=== PATIENT | female | born 1995 | race Caucasian/White ===

== ENCOUNTER 2018-09-15 13:20 | Emergency (ER) | payer OTHER, MEDICAID ==
[~2018-09-15] VITALS: Ht 165.1 cm; Wt 59.0 kg
[~2018-09-15 13:20] MED LIST: CELEXA20 MG PO; ROBAXIN 750 MG750 M1 PO
[2018-09-15] MEDS ORDERED: INVEGA SUS156 MG/1 M IM (13:37)
[2018-09-15] MEDS ORDERED: PRAZOSIN 1 MG CA1 MG PO (13:38)
[2018-09-15] MEDS ORDERED: PROZAC40 MG PO (13:38)
[2018-09-15] MEDS ORDERED: WELLBUTRIN SR100 MG PO (13:39)
[2018-09-15] MEDS ORDERED: HYDROXYZINE HCL25 M1 PO (13:39)
[2018-09-15] MEDS ORDERED: SUBOXONE 12 MG1 EACH SUBLING (13:40)
[2018-09-15 13:48] LABS: URINE BILIRUBIN NEGATIVE (Negative); URINE BLOOD NEGATIVE (Negative); URINE CLARITY CLEAR; URINE COLOR YELLOW; URINE GLUCOSE-RANDOM NEGATIVE (Negative); URINE KETONES NEGATIVE (Negative); URINE LEUKOCYTES-REFLEX NEGATIVE (Negative); URINE NITRITE-REFLEX NEGATIVE (Negative); URINE PROTEIN NEGATIVE (Negative); URINE UROBILINOGEN 0.2 E.U./dl (0.2-1.0)
[2018-09-15 13:57] LABS: ABSOLUTE BASOPHILS 0.1 thou/uL (0.0-0.2); ABSOLUTE EOSINOPHILS 0.2 thou/uL (0.0-0.7); ABSOLUTE LYMPHOCYTES 1.8 thou/uL (0.8-5.3); ABSOLUTE MONOCYTES 0.3 thou/uL (0.0-1.2); ABSOLUTE NEUTROPHILS 2.7 thou/uL (1.6-8.1); BASOPHILS 1.1 %; EOSINOPHILS 3.9 %; HEMATOCRIT 41.5 % (37.0-47.0); LYMPHOCYTES 35.3 %; MCH 31.8 pg (26.0-34.0); MCHC 33.7 g/dL (28.0-37.0); MCV 94.4 fL (80.0-100.0); MONOCYTES 6.6 %; NUCLEATED RBCS 0 /100WBC; PLATELET COUNT* 191 thou/uL (150-400); POLYS 53.1 %; RBC 4.39 mil/uL (4.20-5.00); RDW-CV 12.6 % (10.5-14.5); WBC 5.1 thou/uL (4.0-11.0)
[2018-09-15 14:22] LABS: AMP/METHAMP Negative (Negative); BARBITURATES Negative (Negative); BENZODIAZEPINES Negative (Negative); COCAINE Negative (Negative); METHADONE Negative (Negative); OPIATES Negative (Negative); PCP Negative (Negative); THC Negative (Negative)
[2018-09-15 14:25] LABS: ALBUMIN 4.1 g/dL (3.4-5.0); CREATININE 0.9 mg/dL (0.6-1.3); POTASSIUM 3.9 mmol/L (3.5-5.1); TOTAL BILIRUBIN 0.6 mg/dL (<0.1-1.0); TOTAL PROTEIN 7.5 g/dL (6.4-8.2)
[2018-09-15 14:39] LABS: ALCOHOL < 10 mg/dL (<10); SALICYLATE < 2.8 mg/dL (2.8-20.0)
[2018-09-15 14:41] LABS: ACETAMINOPHEN < 2 ug/mL (10-30)
[2018-09-15 19:15] VITALS: BP 131/79
== END 2018-09-15 19:20 ==
LOC: M.ERS 13:20
PROVIDERS: Emergency Medicine Emergency Medical Services
DX: F20.9 Schizophrenia, unspecified (principal); R45.851 Suicidal ideations; F32.9 Major depressive disorder, single episode, unspecified; Z98.890 Other specified postprocedural states; Z86.19 Personal history of other infectious and parasitic diseases; Z79.899 Other long term (current) drug therapy

== ENCOUNTER 2019-07-01 16:35 | Emergency (ER) | payer OTHER, MEDICAID ==
[~2019-07-01] VITALS: Ht 165.1 cm; Wt 61.2 kg
[~2019-07-01 16:35] MED LIST changes: +HYDROXYZINE HCL25 M1 PO; +INVEGA SUS156 MG/1 M IM; +PRAZOSIN 1 MG CA1 MG PO; +PROZAC40 MG PO; +SUBOXONE 12 MG1 EACH SUBLING; +WELLBUTRIN SR100 MG PO
[2019-07-01] MEDS ORDERED: REMERON15 M2 PO (16:58)
[2019-07-01] MEDS ORDERED: HALDOL 0.5 MG0.5 MG PO (16:59)
[2019-07-01] MEDS ORDERED: VISTARIL50 MG PO (16:59)
[2019-07-01] MEDS ORDERED: ATIVAN0.5 M1 PO (17:32)
[2019-07-01] MEDS ORDERED: TRIAMCINOLONE A80 G2 TOP (17:40)
[2019-07-01 18:01] VITALS: BP 134/79
== END 2019-07-01 18:02 | disposition home or self-care (01) ==
LOC: M.ERS 16:35
DX: L25.9 Unspecified contact dermatitis, unspecified cause (principal); F31.9 Bipolar disorder, unspecified; F41.9 Anxiety disorder, unspecified; Z90.89 Acquired absence of other organs

== ENCOUNTER 2019-11-08 21:22 | Emergency (ER) | payer OTHER, MEDICAID ==
[~2019-11-08] VITALS: Ht 188 cm; Wt 57.1 kg
[~2019-11-08 21:22] MED LIST changes: +ATIVAN0.5 M1 PO; +HALDOL 0.5 MG0.5 MG PO; +REMERON15 M2 PO; +TRIAMCINOLONE A80 G2 TOP; +VISTARIL50 MG PO
[2019-11-08] MEDS ORDERED: ADDERALL 10 MG10 MG PO (22:31)
[2019-11-08] MEDS ORDERED: NEURONTIN300 MG PO (22:31)
[2019-11-08 23:38] LABS: ABSOLUTE BASOPHILS 0.1 thou/uL (0.0-0.2); ABSOLUTE LYMPHOCYTES 3.3 thou/uL (0.8-5.3); BASOPHILS 0.4 %; EOSINOPHILS 0.1 %; HEMATOCRIT 42.4 % (37.0-47.0); HEMOGLOBIN 14.5 gm/dL (12.0-15.0); MCH 32.7 pg (26.0-34.0); MCHC 34.2 g/dL (28.0-37.0); MCV 95.4 fL (80.0-100.0); MONOCYTES 7.3 %; MPV 9.2 fl. (7.2-11.1); NUCLEATED RBCS 0 /100WBC; PLATELET COUNT* 227 thou/uL (150-400); POLYS 67.2 %; RBC 4.44 mil/uL (4.20-5.00); RDW-CV 12.5 % (10.5-14.5); WBC 13.4 thou/uL (4.0-11.0)
[2019-11-08 23:47] LABS: CALCIUM 9.2 mg/dL (8.5-10.1); CREATININE 1.1 mg/dL (0.6-1.3); POTASSIUM 3.6 mmol/L (3.5-5.1)
[2019-11-08 23:52] LABS: ALBUMIN 4.9 g/dL (3.4-5.0); TOTAL BILIRUBIN 0.6 mg/dL (<0.1-1.0); TOTAL PROTEIN 7.5 g/dL (6.4-8.2)
[2019-11-09 02:01] LABS: URINE BILIRUBIN NEGATIVE (Negative); URINE BLOOD NEGATIVE (Negative); URINE CLARITY CLEAR; URINE COLOR STRAW; URINE GLUCOSE-RANDOM NEGATIVE (Negative); URINE KETONES NEGATIVE (Negative); URINE LEUKOCYTES-REFLEX NEGATIVE (Negative); URINE NITRITE-REFLEX NEGATIVE (Negative); URINE PROTEIN NEGATIVE (Negative); URINE SPECIFIC GRAVITY <= 1.005 (1.005-1.030); URINE UROBILINOGEN 0.2 E.U./dl (0.2-1.0)
[2019-11-09] MEDS ORDERED: ZOFRAN ODT4 MG PO (02:17)
[2019-11-09 02:29] VITALS: BP 123/81
== END 2019-11-09 02:29 | disposition home or self-care (01) ==
LOC: M.ERS 21:22
PROVIDERS: Emergency Medicine
DX: R11.2 Nausea with vomiting, unspecified (principal); R10.31 Right lower quadrant pain; F31.9 Bipolar disorder, unspecified; Z90.49 Acquired absence of other specified parts of digestive tract

== ENCOUNTER 2020-01-03 13:02 | Emergency (ER) | payer OTHER, MEDICAID ==
[~2020-01-03] VITALS: Ht 165.1 cm; Wt 59.0 kg
[~2020-01-03 13:02] MED LIST changes: +ADDERALL 10 MG10 MG PO; +NEURONTIN300 MG PO; +ZOFRAN ODT4 MG PO
[2020-01-03] MEDS ORDERED: INVEGA TRI273 MG/0.8 IM (13:20)
[2020-01-03] MEDS ORDERED: MINIPRESS2 MG PO (13:20)
[2020-01-03] MEDS ORDERED: RISPERDAL0.5 MG PO (13:21)
[2020-01-03] MEDS ORDERED: MIRENA1 EACH INTRAUTERI (13:21)
[2020-01-03] MEDS ORDERED: WELLBUTRIN 100100 MG PO (13:21)
[2020-01-03] MEDS ORDERED: [UNRECOGNIZED DRUG - OTHER] (13:22)
[2020-01-03 14:02] LABS: URINE BILIRUBIN NEGATIVE (Negative); URINE BLOOD NEGATIVE (Negative); URINE CLARITY CLEAR; URINE COLOR YELLOW; URINE GLUCOSE-RANDOM NEGATIVE (Negative); URINE KETONES NEGATIVE (Negative); URINE LEUKOCYTES-REFLEX NEGATIVE (Negative); URINE NITRITE-REFLEX NEGATIVE (Negative); URINE PROTEIN NEGATIVE (Negative); URINE SPECIFIC GRAVITY <= 1.005 (1.005-1.030); URINE UROBILINOGEN 0.2 E.U./dl (0.2-1.0)
[2020-01-03 14:16] LABS: ABSOLUTE BASOPHILS 0.1 thou/uL (0.0-0.2); ABSOLUTE EOSINOPHILS 0.1 thou/uL (0.0-0.7); ABSOLUTE LYMPHOCYTES 1.9 thou/uL (0.8-5.3); ABSOLUTE MONOCYTES 0.5 thou/uL (0.0-1.2); ABSOLUTE NEUTROPHILS 3.1 thou/uL (1.6-8.1); BASOPHILS 0.9 %; HEMATOCRIT 42.3 % (37.0-47.0); HEMOGLOBIN 14.7 gm/dL (12.0-15.0); LYMPHOCYTES 33.1 %; MCH 33.8 pg (26.0-34.0); MCHC 34.7 g/dL (28.0-37.0); MCV 97.3 fL (80.0-100.0); MONOCYTES 9.2 %; MPV 8.4 fl. (7.2-11.1); NUCLEATED RBCS 0 /100WBC; PLATELET COUNT* 238 thou/uL (150-400); POLYS 54.8 %; RBC 4.34 mil/uL (4.20-5.00); WBC 5.7 thou/uL (4.0-11.0)
[2020-01-03 14:22] LABS: APTT 22.4 Seconds (25.0-31.3); CALCIUM 8.9 mg/dL (8.5-10.1); CREATININE 0.9 mg/dL (0.6-1.3); POTASSIUM 4.2 mmol/L (3.5-5.1)
[2020-01-03 14:26] LABS: TOTAL BILIRUBIN 0.3 mg/dL (<0.1-1.0); TOTAL PROTEIN 7.1 g/dL (6.4-8.2)
[2020-01-03 14:48] LABS: AMP/METHAMP POSITIVE (Negative); BARBITURATES Negative (Negative); BENZODIAZEPINES Negative (Negative); COCAINE Negative (Negative); METHADONE Negative (Negative); OPIATES Negative (Negative); PCP Negative (Negative); THC Negative (Negative)
[2020-01-03] MEDS ORDERED: PHENERGAN 25 MG25 M1 PO (18:12)
[2020-01-03] MEDS ORDERED: NORCO 5-325 TA1 EAC2 PO (18:12)
[2020-01-03 18:20] VITALS: BP 125/70
--- NOTE | 2020-01-04 10:23 | EKG ---
[place] [address] ELECTROCARDIOGRAM REPORT Name: LUCERO UMANA Room: [facility]#: [id number] Admission: 01/03/20 Attend Phys: Discharge: 01/03/20 Date of : [birth year] Date of Service: 01/03/20 1403 Report #: [id number] THIS REPORT FOR: //name// [facility] ED Test Date: 2020-01-03 Test Time: 14:03:15 Pat Name: LUCERO UMANA Department: Room: Gender: F [employer] Induction: CCD : 1995 Requested By: Lilia Elena Order Number: [id number] MD: Garth Rowan Measurements Intervals [place] Rate: 126 P: 47 SC: 124 QRS: 53 QRSD: 76 T: 42 QT: 308 QTc: 446 Interpretive Statements Sinus tachycardia No previous ECG available for comparison Electronically Signed On 01-04-2020 10:23:26 CDT by Garth Rowan [email or web address] <ELECTRONICALLY SIGNED> By: Garth Rowan MD, [facility] 01/04/20 1023 1403 02 Garth Rowan MD, FACC /EPI
== END 2020-01-03 18:21 | disposition home or self-care (01) ==
LOC: M.ERS 13:02
PROVIDERS: Nurse Practitioner Family
DX: S39.012A Strain of muscle, fascia and tendon of lower back, initial encounter (principal); S29.012A Strain of muscle and tendon of back wall of thorax, initial encounter; R10.11 Right upper quadrant pain; K76.0 Fatty (change of) liver, not elsewhere classified; R19.7 Diarrhea, unspecified; F17.210 Nicotine dependence, cigarettes, uncomplicated; Z90.89 Acquired absence of other organs; Z86.19 Personal history of other infectious and parasitic diseases; Z87.19 Personal history of other diseases of the digestive system; Z79.899 Other long term (current) drug therapy; V89.2XXA Person injured in unspecified motor-vehicle accident, traffic, initial encounter; Y93.89 Activity, other specified; Y92.89 Other specified places as the place of occurrence of the external cause; Y99.8 Other external cause status

== ENCOUNTER 2020-01-09 13:19 | Inpatient (IN) | payer OTHER, MEDICAID ==
[~2020-01-09] VITALS: Ht 152.4 cm; Wt 61.2 kg
--- NOTE | ~2020-01-09 | OP ---
[facility] [address] [place] [address] OPERATIVE REPORT Name: LUCERO UMANA Room: [address] IN M.R.#: [id number] Admission: 01/09/20 Attend Phys: Alton Guerrero Discharge: Date of : [birth year] Report #: [id number] THIS REPORT FOR: //name// cc: REID Guzman family physician/PCP REID Guzman family physician/PCP ~ THIS REPORT FOR: //name// CC: REID physician/PCP Alton Guerrero DATE OF SERVICE: 01/09/2020 PREOPERATIVE DIAGNOSIS: Acute appendicitis. POSTOPERATIVE DIAGNOSIS: Acute appendicitis. OPERATION: Laparoscopic appendectomy. SURGEON: Alton Guerrero MD ANESTHESIA: General. ESTIMATED BLOOD LOSS: Minimal. SPECIMEN: Appendix. DESCRIPTION OF PROCEDURE: After informed consent was obtained, the patient was brought to the operating room and placed supine. SCDs were placed and working, preoperative antibiotics were administered, general anesthesia was induced. The abdomen was prepped and draped in the usual sterile fashion. A 10-mm incision was made below the umbilicus. Fascia was incised and a trocar was placed. Pneumoperitoneum was established. Right upper quadrant and left lower quadrant 5-mm trocar was placed. The appendix was visualized in the right lower quadrant. It was grasped and retracted anteriorly. A window was made in the mesoappendix. The mesoappendix was ligated with a KURT liao load stapler. The base of the appendix was stapled off with a KURT blue load stapler. Appendix was placed into an Endopouch and removed. The fascia was then closed with a iuydjn-ud-uzlax 0 Vicryl. Skin was closed with 4-0 Monocryl. Incisions were sealed with Dermabond. COMPLICATIONS: [place] [address] OPERATIVE REPORT Name: LUCERO UMANA Room: [address]#: [id number] Admission: 01/09/20 Attend Phys: Alton Guerrero Discharge: Date of : [birth year] Report #: [id number] DISPOSITION: The patient was taken to recovery in satisfactory condition. By: [id number] Guerrero MD /sukhdev
[~2020-01-09 13:19] MED LIST changes: +INVEGA TRI273 MG/0.8 IM; +MINIPRESS2 MG PO; +MIRENA1 EACH INTRAUTERI; +NORCO 5-325 TA1 EAC2 PO; +PHENERGAN 25 MG25 M1 PO; +RISPERDAL0.5 MG PO; +WELLBUTRIN 100100 MG PO; +[UNRECOGNIZED DRUG - OTHER] PO
[2020-01-09 13:28] VITALS: BP 112/80
--- NOTE | 2020-01-09 14:00 | NUR ---
PT BROUGHT BACK TO A ROOM. SHE STATED SHE IS HERE FOR PAIN CONTROL, THE HYDROCODONE SHE HAS IS NOT WORKING. ADDITIONALLY, SHE WOULD LIKE A TEST, SHE HAS HAD CONFLICTING TESTS AT HOME.
[2020-01-09 14:01] LABS: URINE BILIRUBIN NEGATIVE (Negative); URINE BLOOD NEGATIVE (Negative); URINE CLARITY CLEAR; URINE COLOR YELLOW; URINE GLUCOSE-RANDOM NEGATIVE (Negative); URINE KETONES NEGATIVE (Negative); URINE LEUKOCYTES-REFLEX NEGATIVE (Negative); URINE NITRITE-REFLEX NEGATIVE (Negative); URINE PROTEIN NEGATIVE (Negative); URINE UROBILINOGEN 0.2 E.U./dl (0.2-1.0)
[2020-01-09 15:03] LABS: CALCIUM 8.8 mg/dL (8.5-10.1); POTASSIUM 4.1 mmol/L (3.5-5.1)
[2020-01-09 15:05] LABS: APTT 23.5 Seconds (25.0-31.3); PROTIME 9.9 Seconds (9.20-11.50)
[2020-01-09 15:07] LABS: ABSOLUTE EOSINOPHILS 0.2 thou/uL (0.0-0.7); ABSOLUTE LYMPHOCYTES 1.9 thou/uL (0.8-5.3); ABSOLUTE MONOCYTES 0.5 thou/uL (0.0-1.2); BASOPHILS 0.5 %; EOSINOPHILS 2.6 %; LYMPHOCYTES 28.9 %; MCH 34.1 pg (26.0-34.0); MCV 97.4 fL (80.0-100.0); MPV 8.2 fl. (7.2-11.1); NUCLEATED RBCS 0 /100WBC; PLATELET COUNT* 267 thou/uL (150-400); RDW-CV 12.9 % (10.5-14.5); WBC 6.6 thou/uL (4.0-11.0)
[2020-01-09 15:08] LABS: ALBUMIN 3.9 g/dL (3.4-5.0); TOTAL BILIRUBIN 0.3 mg/dL (<0.1-1.0); TOTAL PROTEIN 6.9 g/dL (6.4-8.2)
[2020-01-09 18:50] VITALS: BP 112/67
[2020-01-09 20:00] VITALS: BP 126/80
--- NOTE | 2020-01-10 04:38 | NUR ---
PT ARRIVED TO THE UNIT AT SHIFT CHANGE. A&O X 4. VSS ON RA. PAIN MANAGED WITH FENTANYL. ATIVAN GIVEN PER PT REQUEST FOR ANXIETY. NO C/O NAUSEA OR VOMITING. NPO SINCE MIDNIGHT. WILL CONTINUE TO MONITOR.
[2020-01-10 08:30] VITALS: BP 112/63
--- NOTE | 2020-01-10 18:01 | NUR ---
PT AOx4. pt had lap appe done today and returned to floor at 1700. Dermabond to lap sites x3. Pt c/o 9/10 pain while resting comfortably in bed. Pt given norco PO for pain management. IV saline locked, up ad fabio in room. Voiced no concerns. Will continue to monitor
[2020-01-10 19:57] VITALS: BP 102/61
--- NOTE | 2020-01-11 06:00 | NUR ---
PT ALERT AND ORIENTED WITH FLAT AFFECT. PAIN STILL AN ISSUE WAS RATED 9/10 ON ASSESSMENTS. RECEIVED HYDROCODONE AND FENTANYL BOTH 2X DURING SHIFT FOR PAIN. SHE WAS ABLE TO SLEEP MOST OF THE NIGHT. SHE IS STANDBY ASSIST TO RESTROOM AND ON ROOM AIR. SHE DID REQUEST SOMETHING FOR ANXIETY (ATIVAN) WHICH HELPED HER SLEEP. SHE IS AMBULATING WELL BUT REPORTS SEVERE ABDOMINAL PAIN. 3 ABD LAPSITES WITH DERMABOND CLEAR OF ANY S/S OF INFECTION. NO REPORTS OF NAUSEA OR VOMITING. WILL CONTINUE TO FOLLOW PLAN OF CARE.
[2020-01-11 08:30] VITALS: BP 122/77
[2020-01-11 12:02] VITALS: BP 116/62
[2020-01-11 12:57] VITALS: BP 116/62
--- NOTE | 2020-01-11 13:35 | NUR ---
PATIENT DISCHARGED TO HOME. DISCHARGE PAPERS REVIEWED AND SIGNED. PRESCRIPTION AND INFORMATION SHEETS GIVEN. IV REMOVED. PATIENT DENIES ANY FURTHER NEEDS. PATIENT TAKEN BY WHEELCHAIR TO EXIT. LEFT WITH GRANDMOTHER.
--- NOTE | 2020-01-13 17:06 | PATH ---
[address] [address] PATHOLOGY RPT PROCEDURE Name: LUCERO UMANA Room: [address] IN M.R.#: [id number] Admission: 01/09/20 Date of : [birth year] Discharge: 01/11/20 Report #: [id number] Path Case #: [id number] [facility] Accession Number: [id number] . 01 Material submitted: . appendix - APPENDIX . 01 Clinical history: . ACUTE APPENDICITIS . 02 Diagnosis: Appendix: - Benign and non-inflamed appendix. . (GREG:mml; 01/12/2020) [facility] 01/12/2020 1628 Local . 02 Electronically signed: . Zach Jay MD, Pathologist NPI- [id number] . 01 Gross description: . The specimen is received in formalin, labeled "baljit Yoon". Received is a vermiform appendix measuring 8.7 cm in length by up to 0.8 cm in diameter with a moderate amount of attached mesoappendix. The serosal surface is pink-liao in appearance with moderate vasculature over the distal half of the specimen. The surgical margin is closed with a line of oliva. The oliva are removed and the new margin is inked black. Sectioning reveals a patent to dilated lumen filled with fecal material. The specimen is submitted representatively in cassettes A1 and A2, with the proximal margin and bisected tip submitted in cassette A1. ([facility]; 01/11/2020) . After initial microscopic examination, the remainder of the appendix is submitted from proximal to distal aspects in cassettes A3 through A7. ([facility]; 01/12/2020) QAC/QAC 01/12/2020 1755 Local . 02 Pathologist provided ICD-10: K35.80 . 02 CPT . 200107 Specimen Comment: A courtesy copy of this report has been sent to [phone] Specimen Comment: Report sent to Performed at: [address] [facility], [place] [id number] [place] [address] PATHOLOGY RPT PROCEDURE Name: LUCERO UMANA Room: [address] IN M.R.#: [id number] Admission: 01/09/20 Date of : [birth year] Discharge: 01/11/20 Report #: [id number] Path Case #: [id number] MD Brenden Lynch MD Phone: [phone] Performed at: [address] [facility] [address], [place], [place] [id number] MD Zach Jay MD Phone: [phone]
== END 2020-01-11 13:20 | disposition home or self-care (01) | DRG 343 ==
LOC: M.ERS 13:19 → M.TBA-ER 16:14 → M.ORTHSURG 16:14
PROVIDERS: Physician Assistant; ADMIT Surgery; ATTEND Surgery
PROC: 0DTJ4ZZ Resection of Appendix, Percutaneous Endoscopic Approach (ICD-10-PCS; principal; 2020-01-09)
DX: K35.80 Unspecified acute appendicitis (principal); F31.9 Bipolar disorder, unspecified; F25.9 Schizoaffective disorder, unspecified; K75.9 Inflammatory liver disease, unspecified; F41.9 Anxiety disorder, unspecified; F17.210 Nicotine dependence, cigarettes, uncomplicated; Z79.899 Other long term (current) drug therapy

== ENCOUNTER 2020-03-10 11:00 | Emergency (ER) | payer OTHER, MEDICAID ==
[~2020-03-10] VITALS: Ht 170.2 cm; Wt 70.3 kg
[2020-03-10 11:10] VITALS: BP 144/84
[2020-03-10] MEDS ORDERED: ATIVAN0.5 M1 PO (11:14)
[2020-03-10 12:08] LABS: ABSOLUTE BASOPHILS 0.1 thou/uL (0.0-0.2); ABSOLUTE EOSINOPHILS 0.2 thou/uL (0.0-0.7); ABSOLUTE LYMPHOCYTES 2.2 thou/uL (0.8-5.3); ABSOLUTE MONOCYTES 0.4 thou/uL (0.0-1.2); ABSOLUTE NEUTROPHILS 3.1 thou/uL (1.6-8.1); BASOPHILS 1.1 %; EOSINOPHILS 3.7 %; HEMATOCRIT 44.2 % (37.0-47.0); HEMOGLOBIN 15.1 gm/dL (12.0-15.0); LYMPHOCYTES 36.9 %; MCH 33.4 pg (26.0-34.0); MCHC 34.3 g/dL (28.0-37.0); MCV 97.6 fL (80.0-100.0); MONOCYTES 7.3 %; MPV 7.9 fl. (7.2-11.1); NUCLEATED RBCS 0 /100WBC; PLATELET COUNT* 214 thou/uL (150-400); RBC 4.53 mil/uL (4.20-5.00); RDW-CV 12.1 % (10.5-14.5); WBC 6.1 thou/uL (4.0-11.0)
[2020-03-10 12:19] LABS: CALCIUM 9.3 mg/dL (8.5-10.1); POTASSIUM 4.1 mmol/L (3.5-5.1)
[2020-03-10 12:23] LABS: ALBUMIN 4.4 g/dL (3.4-5.0); TOTAL BILIRUBIN 0.4 mg/dL (<0.1-1.0); TOTAL PROTEIN 7.7 g/dL (6.4-8.2)
== END 2020-03-10 12:37 | disposition home or self-care (01) ==
LOC: M.ERS 11:00
PROVIDERS: Emergency Medicine Emergency Medical Services
DX: R10.11 Right upper quadrant pain (principal); Z90.89 Acquired absence of other organs; Z86.19 Personal history of other infectious and parasitic diseases

== ENCOUNTER 2020-05-01 05:16 | Emergency (ER) | payer OTHER, MEDICAID ==
[~2020-05-01] VITALS: Ht 165.1 cm; Wt 61.2 kg
[2020-05-01] MEDS ORDERED: ROXICODONE5 M2 PO (05:35)
[2020-05-01 05:51] VITALS: BP 124/72
[2020-05-01 05:57] LABS: URINE BILIRUBIN NEGATIVE (Negative); URINE BLOOD NEGATIVE (Negative); URINE CLARITY CLEAR; URINE COLOR YELLOW; URINE GLUCOSE-RANDOM NEGATIVE (Negative); URINE KETONES NEGATIVE (Negative); URINE LEUKOCYTES-REFLEX NEGATIVE (Negative); URINE NITRITE-REFLEX NEGATIVE (Negative); URINE PROTEIN NEGATIVE (Negative); URINE SPECIFIC GRAVITY >= 1.030 (1.005-1.030)
[2020-05-01 06:15] LABS: AMP/METHAMP Negative (Negative); BARBITURATES Negative (Negative); BENZODIAZEPINES Negative (Negative); COCAINE Negative (Negative); METHADONE Negative (Negative); OPIATES Negative (Negative); PCP Negative (Negative); THC Negative (Negative)
== END 2020-05-01 05:51 | disposition left against medical advice (07) ==
LOC: M.ERS 05:16
PROVIDERS: Personal Emergency Response Attendant
DX: R10.13 Epigastric pain (principal); R51.9 Headache, unspecified; Z90.89 Acquired absence of other organs

== ENCOUNTER 2020-05-13 18:22 | Emergency (ER) | payer OTHER, MEDICAID ==
[~2020-05-13] VITALS: Ht 165.1 cm; Wt 61.2 kg
[~2020-05-13 18:22] MED LIST changes: +ROXICODONE5 M2 PO
[2020-05-13 19:29] LABS: ABSOLUTE EOSINOPHILS 0.2 thou/uL (0.0-0.7); ABSOLUTE LYMPHOCYTES 2.2 thou/uL (0.8-5.3); ABSOLUTE MONOCYTES 0.5 thou/uL (0.0-1.2); ABSOLUTE NEUTROPHILS 3.6 thou/uL (1.6-8.1); BASOPHILS 0.7 %; EOSINOPHILS 3.2 %; HEMATOCRIT 41.7 % (37.0-47.0); HEMOGLOBIN 14.1 gm/dL (12.0-15.0); LYMPHOCYTES 33.7 %; MCH 32.8 pg (26.0-34.0); MCHC 33.9 g/dL (28.0-37.0); MCV 96.8 fL (80.0-100.0); MONOCYTES 7.3 %; MPV 7.7 fl. (7.2-11.1); NUCLEATED RBCS 0 /100WBC; PLATELET COUNT* 230 thou/uL (150-400); POLYS 55.1 %; RBC 4.31 mil/uL (4.20-5.00); RDW-CV 12.1 % (10.5-14.5); WBC 6.6 thou/uL (4.0-11.0)
[2020-05-13 19:37] LABS: CALCIUM 8.9 mg/dL (8.5-10.1); CREATININE 0.8 mg/dL (0.6-1.3); POTASSIUM 3.7 mmol/L (3.5-5.1)
[2020-05-13 19:41] LABS: ALBUMIN 4.1 g/dL (3.4-5.0); TOTAL BILIRUBIN 0.3 mg/dL (<0.1-1.0); TOTAL PROTEIN 7.3 g/dL (6.4-8.2)
[2020-05-13] MEDS ORDERED: ZOFRAN4 MG PO (20:05)
[2020-05-13 20:47] VITALS: BP 126/76
== END 2020-05-13 20:49 | disposition home or self-care (01) ==
LOC: M.ERS 18:22
PROVIDERS: Physician Assistant
DX: B34.9 Viral infection, unspecified (principal); R11.2 Nausea with vomiting, unspecified; Z20.828 Contact with and (suspected) exposure to other viral communicable diseases; Z90.89 Acquired absence of other organs; Z86.19 Personal history of other infectious and parasitic diseases

== ENCOUNTER 2020-07-10 16:04 | Emergency (ER) | payer OTHER, MEDICAID ==
[~2020-07-10] VITALS: Ht 165.1 cm; Wt 59.0 kg
[~2020-07-10 16:04] MED LIST changes: +ZOFRAN4 MG PO
[2020-07-10] MEDS ORDERED: WELLBUTRIN 75 M75 M1 PO (16:12)
[2020-07-10] MEDS ORDERED: INVEGA 3 MG3 MG PO (16:12)
[2020-07-10 16:33] VITALS: BP 118/75
== END 2020-07-10 16:33 | disposition home or self-care (01) ==
LOC: M.ERS 16:04
DX: F19.10 Other psychoactive substance abuse, uncomplicated (principal); K74.60 Unspecified cirrhosis of liver; F17.210 Nicotine dependence, cigarettes, uncomplicated; Z90.89 Acquired absence of other organs; Z86.19 Personal history of other infectious and parasitic diseases

== ENCOUNTER 2020-08-03 13:22 | Emergency (ER) | payer OTHER, MEDICAID ==
[~2020-08-03] VITALS: Ht 165.1 cm; Wt 61.2 kg
[~2020-08-03 13:22] MED LIST changes: +INVEGA 3 MG3 MG PO; +WELLBUTRIN 75 M75 M1 PO
[2020-08-03] MEDS ORDERED: ALPRAZOLAM 0.50.5 M1 PO ×2 (13:45→13:55)
[2020-08-03 13:58] VITALS: BP 140/82
== END 2020-08-03 13:58 | disposition home or self-care (01) ==
LOC: M.ERS 13:22
DX: F41.9 Anxiety disorder, unspecified (principal); F32.9 Major depressive disorder, single episode, unspecified; F25.9 Schizoaffective disorder, unspecified; F17.210 Nicotine dependence, cigarettes, uncomplicated; Z90.89 Acquired absence of other organs; Z86.19 Personal history of other infectious and parasitic diseases

== ENCOUNTER 2020-11-07 21:31 | Emergency (ER) | payer OTHER, MEDICAID ==
[~2020-11-07] VITALS: Ht 165.1 cm; Wt 59.0 kg
[~2020-11-07 21:31] MED LIST changes: +ALPRAZOLAM 0.50.5 M1 PO
[2020-11-07] MEDS ORDERED: REMERON45 M1 PO (21:59)
[2020-11-07 22:28] LABS: URINE BILIRUBIN NEGATIVE (Negative); URINE BLOOD NEGATIVE (Negative); URINE CLARITY CLEAR; URINE COLOR YELLOW; URINE GLUCOSE-RANDOM NEGATIVE (Negative); URINE KETONES NEGATIVE (Negative); URINE LEUKOCYTES-REFLEX NEGATIVE (Negative); URINE NITRITE-REFLEX NEGATIVE (Negative); URINE PROTEIN NEGATIVE (Negative); URINE UROBILINOGEN 0.2 E.U./dl (0.2-1.0)
[2020-11-07 22:37] LABS: AMP/METHAMP POSITIVE (Negative); BARBITURATES Negative (Negative); BENZODIAZEPINES Negative (Negative); COCAINE Negative (Negative); METHADONE Negative (Negative); OPIATES Negative (Negative); PCP Negative (Negative); THC Negative (Negative)
[2020-11-07 22:51] LABS: ABSOLUTE BASOPHILS 0.1 thou/uL (0.0-0.2); ABSOLUTE EOSINOPHILS 0.4 thou/uL (0.0-0.7); ABSOLUTE LYMPHOCYTES 2.8 thou/uL (0.8-5.3); ABSOLUTE MONOCYTES 0.5 thou/uL (0.0-1.2); ABSOLUTE NEUTROPHILS 3.8 thou/uL (1.6-8.1); BASOPHILS 1.1 %; EOSINOPHILS 4.9 %; HEMATOCRIT 39.5 % (37.0-47.0); HEMOGLOBIN 13.6 gm/dL (12.0-15.0); LYMPHOCYTES 36.8 %; MCH 33.9 pg (26.0-34.0); MCHC 34.4 g/dL (28.0-37.0); MCV 98.5 fL (80.0-100.0); MONOCYTES 6.7 %; MPV 8.1 fl. (7.2-11.1); NUCLEATED RBCS 0 /100WBC; PLATELET COUNT* 241 thou/uL (150-400); POLYS 50.5 %; RBC 4.01 mil/uL (4.20-5.00); RDW-CV 12.5 % (10.5-14.5); WBC 7.6 thou/uL (4.0-11.0)
[2020-11-07 22:59] LABS: CREATININE 1.1 mg/dL (0.6-1.3); POTASSIUM 3.8 mmol/L (3.5-5.1)
[2020-11-07 23:04] LABS: ALBUMIN 3.8 g/dL (3.4-5.0); TOTAL PROTEIN 6.9 g/dL (6.4-8.2)
[2020-11-07 23:14] LABS: SALICYLATE 3.8 mg/dL (2.8-20.0)
[2020-11-07 23:17] LABS: ACETAMINOPHEN < 2 ug/mL (10-30); TOTAL BILIRUBIN 0.2 mg/dL (<0.1-1.0)
[2020-11-08 10:32] VITALS: BP 130/68
== END 2020-11-08 10:32 ==
LOC: M.ERS 21:31
PROVIDERS: Emergency Medicine
DX: F29 Unspecified psychosis not due to a substance or known physiological condition (principal); Z20.822 Contact with and (suspected) exposure to COVID-19; F15.10 Other stimulant abuse, uncomplicated; F20.9 Schizophrenia, unspecified; F32.9 Major depressive disorder, single episode, unspecified; F17.210 Nicotine dependence, cigarettes, uncomplicated; Z90.89 Acquired absence of other organs; Z86.19 Personal history of other infectious and parasitic diseases; Z79.899 Other long term (current) drug therapy

== ENCOUNTER 2021-02-03 16:55 | Emergency (ER) | payer OTHER, MEDICAID ==
[~2021-02-03] VITALS: Ht 165.1 cm; Wt 65.8 kg
[~2021-02-03 16:55] MED LIST changes: +REMERON45 M1 PO
[2021-02-03] MEDS ORDERED: ADDERALL XR 3030 MG PO (17:11)
[2021-02-03 18:30] LABS: URINE BILIRUBIN NEGATIVE (Negative); URINE BLOOD NEGATIVE (Negative); URINE CLARITY CLEAR; URINE COLOR YELLOW; URINE GLUCOSE-RANDOM NEGATIVE (Negative); URINE KETONES NEGATIVE (Negative); URINE LEUKOCYTES-REFLEX NEGATIVE (Negative); URINE NITRITE-REFLEX NEGATIVE (Negative); URINE PROTEIN NEGATIVE (Negative); URINE UROBILINOGEN 0.2 E.U./dl (0.2-1.0)
[2021-02-03 18:32] LABS: ABSOLUTE BASOPHILS 0.1 thou/uL (0.0-0.2); ABSOLUTE EOSINOPHILS 0.3 thou/uL (0.0-0.7); ABSOLUTE LYMPHOCYTES 3.3 thou/uL (0.8-5.3); ABSOLUTE MONOCYTES 0.6 thou/uL (0.0-1.2); ABSOLUTE NEUTROPHILS 5.2 thou/uL (1.6-8.1); BASOPHILS 0.7 %; EOSINOPHILS 3.5 %; HEMATOCRIT 42.8 % (37.0-47.0); HEMOGLOBIN 14.8 gm/dL (12.0-15.0); LYMPHOCYTES 34.5 %; MCH 33.9 pg (26.0-34.0); MCHC 34.5 g/dL (28.0-37.0); MCV 98.4 fL (80.0-100.0); MONOCYTES 6.4 %; MPV 8.5 fl. (7.2-11.1); NUCLEATED RBCS 0 /100WBC; PLATELET COUNT* 241 thou/uL (150-400); POLYS 54.9 %; RBC 4.35 mil/uL (4.20-5.00); WBC 9.4 thou/uL (4.0-11.0)
[2021-02-03 18:38] LABS: CALCIUM 9.7 mg/dL (8.5-10.1); POTASSIUM 4.1 mmol/L (3.5-5.1)
[2021-02-03 18:48] LABS: ALBUMIN 4.4 g/dL (3.4-5.0); TOTAL BILIRUBIN 0.3 mg/dL (<0.1-1.0); TOTAL PROTEIN 7.5 g/dL (6.4-8.2)
[2021-02-03 19:04] VITALS: BP 133/68
== END 2021-02-03 19:05 | disposition left against medical advice (07) ==
LOC: M.ERS 16:55
PROVIDERS: Nurse Practitioner Family
DX: R10.11 Right upper quadrant pain (principal); Z20.822 Contact with and (suspected) exposure to COVID-19; R05 Cough; R07.81 Pleurodynia; F32.9 Major depressive disorder, single episode, unspecified; R19.7 Diarrhea, unspecified; R43.8 Other disturbances of smell and taste; F17.210 Nicotine dependence, cigarettes, uncomplicated; F25.9 Schizoaffective disorder, unspecified; Z79.899 Other long term (current) drug therapy